=== PATIENT | female | born 1995 | race Caucasian/White ===

== ENCOUNTER 2019-12-22 12:14 | Emergency (ER) | payer OTHER ==
--- NOTE | 2019-12-22 13:00 | EDM.PDOC ---
ED HPI GENERAL MEDICAL PROBLEM - General Chief Complaint: Upper Extremity Injury/Pain Stated Complaint: SMASHED R INDEX FINGER Time Seen by Provider: 12/22/19 12:33 Source of Information: Reports: Patient History Limitations: Reports: No Limitations - History of Present Illness INITIAL COMMENTS - FREE TEXT/NARRATIVE: Patient's right index finger caught between main frame of a [employer] and a wrench. Crushed/small laceration. Swollen. Mild numbness at tip. Lacerations cleansed/dressed at facility. Sent here for xray. No other injuries per patient. Is icing finger and holding it elevated/on shoulder as it feels better that way. - Related Data Allergies Allergy/AdvReac Type Severity Reaction Status Date / Time No Known Allergies Allergy Verified 12/22/19 12:15 Past Medical History - Past Health History Medical/Surgical History: Denies Medical/Surgical History Review of Systems - Review of Systems Review Of Systems: See Below Musculoskeletal: Reports: Other (right index finger pain/swelling) Skin: Reports: Other (small laceration right index finger) Neurological: Reports: Other (mild numbess finger tip right index finger) ED EXAM, GENERAL - Physical Exam Exam: See Below Exam Limited By: No Limitations General Appearance: Alert, WD/WN, No Apparent Distress Eye Exam: Bilateral Eye: EOMI, PERRL Ears: Hearing Grossly Normal Throat/Mouth: Normal Voice, No Airway Compromise Head: Atraumatic, Normocephalic Neck: Supple Respiratory/Chest: No Respiratory Distress Extremities: Other (Exam of right hand shows welling around middle IP joint index finger and also to some extent DIP. Skin is bruised. No deformity. Te ndon function appears intact. Small avulsion type laceration noted near MIP that is dressed with small bandage. Vascularly intact. Some pain limitation with flex/entend. Remaining fingers/palm of hand unremarkable. ) Psychiatric: Normal Affect, Normal Mood Skin Exam: Warm, Dry Course - Vital Signs Last Recorded V/S: Last Vital Signs Temp 36.9 C 12/22/19 12:21 Pulse 84 12/22/19 12:21 Resp 20 12/22/19 12:21 BP 124/80 12/22/19 12:21 Pulse Ox 100 12/22/19 12:21 - Orders/Labs/Meds Orders: Active Orders 24 hr Category Date Time Status Hand 2V Rt [CR] Stat Exams 12/22/19 12:19 Taken - Re-Assessments/Exams Free Text/Narrative Re-Assessment/Exam: 12/22/19 13:11 Xray of affected finger did not show obvious laceration. Wound care reviewed. No work for rest of shift today and tomorrow. Limited use of affected right hand rest of week. OK to return to full duty next week. If further limitations needed to follow up with PCP next Sunday. Departure - Departure Time of Disposition: 12:58 Disposition: Home, Self-Care 01 Condition: Good Clinical Impression: Contusion of right index finger Qualifiers: Encounter type: initial encounter Damage to nail status: without damage Qualified Code(s): S60.021A - Contusion of right index finger without damage to nail, initial encounter Laceration of right index finger Qualifiers: Encounter type: initial encounter Damage to nail status: without damage Foreign body presence: without foreign body Qualified Code(s): S61.210A - Laceration without foreign body of right index finger without damage to nail, initial encounter - Discharge Information *PRESCRIPTION DRUG MONITORING PROGRAM REVIEWED*: Not Applicable *COPY OF PRESCRIPTION DRUG MONITORING REPORT IN PATIENT CHANTELL: Not Applicable Instructions: Contusion, [id number], Laceration Care, Adult, [id number] Referrals: Jenny Hoff [employer] [Primary Care Provider] - Forms: ED Department Discharge Additional Instructions: No work for today/tomorrow. OK to return to work after that with restriction to avoid using right hand for rest of week. Laceration care as discussed. Follow up as needed if you develop any signs of infection or if additional restrictions needed. Sepsis Event Note (ED) - Evaluation Sepsis Screening Result: No Definite Risk - Focused Exam Vital Signs: Vital Signs Temp Pulse Resp BP Pulse Ox 12/22/19 12:21 36.9 C 84 20 124/80 100 - My Orders Last 24 Hours: My Active Orders 12/22/19 12:19 Hand 2V Rt [CR] Stat - Assessment/Plan Last 24 Hours: My Active Orders 12/22/19 12:19 Hand 2V Rt [CR] Stat
== END 2019-12-22 13:25 | disposition home or self-care (01) ==
LOC: LL.ED 12:14
DX: S61.210A Laceration without foreign body of right index finger without damage to nail, initial encounter (principal); W23.0XXA Caught, crushed, jammed, or pinched between moving objects, initial encounter
CPT/HCPCS: 73120-RT; 99283-25